=== PATIENT | female | born 1980 | race Caucasian/White ===

== ENCOUNTER 2016-10-23 15:48 | Emergency (ER) | payer SELFPAY ==
[2016-10-23 17:22] LABS: HEMOGLOBIN 13.3 gm/dl (12.3-15.3); RED BLOOD COUNT 4.94 M/UL (4.00-5.10); WHITE BLOOD COUNT 15.4 K/UL (4.5-11.0)
== END 2016-10-23 21:10 | disposition home or self-care (01) ==
LOC: ER1 15:48
PROVIDERS: Specialist/Technologist Athletic Trainer
DX: R05 Cough (principal); R09.89 Other specified symptoms and signs involving the circulatory and respiratory systems; E66.01 Morbid (severe) obesity due to excess calories; Z88.8 Allergy status to other drugs, medicaments and biological substances
CPT/HCPCS: 36415; 71010; 84702; 85025; 85379; 85610; 85730; 87081; 87880; 93005; 96360; 96361; 99283

== ENCOUNTER 2021-03-19 16:00 | Emergency (ER) | payer OTHER ==
[2021-03-19] MEDS ORDERED: CYCLOBENZAPRINE10 MG PO (18:30)
[2021-03-19] MEDS ORDERED: MOBIC15 MG PO (18:30)
== END 2021-03-19 18:56 | disposition home or self-care (01) ==
LOC: ER1 16:00
DX: S16.1XXA Strain of muscle, fascia and tendon at neck level, initial encounter (principal); S39.012A Strain of muscle, fascia and tendon of lower back, initial encounter; V43.62XA Car passenger injured in collision with other type car in traffic accident, initial encounter
CPT/HCPCS: 72125; 72131; 84703; 96372; 99284; J1885

== ENCOUNTER 2021-05-09 13:49 | Emergency (ER) | payer OTHER ==
[~2021-05-09] VITALS: Ht 162.6 cm; Wt 100.2 kg
[~2021-05-09 13:49] MED LIST: CYCLOBENZAPRINE10 MG PO; MOBIC15 MG PO
== END 2021-05-09 19:46 | disposition home or self-care (01) ==
LOC: ER1 13:49
DX: U07.1 COVID-19 (principal); Z23 Encounter for immunization; Z88.1 Allergy status to other antibiotic agents
CPT/HCPCS: 99283; M0245; U0002

== ENCOUNTER 2021-05-16 22:07 | Emergency (ER) | payer BC ==
[2021-05-17 00:21] LABS: HEMOGLOBIN 14.5 gm/dl (12.3-15.3); RED BLOOD COUNT 5.47 M/UL (4.00-5.10); WHITE BLOOD COUNT 22.3 K/UL (4.5-11.0)
[2021-05-17 00:41] LABS: BUN/CREATININE RATIO 22 (0-10)
[2021-05-17] MEDS ORDERED: VIBRAMYCIN 100100 MG PO (02:44)
== END 2021-05-17 03:00 | disposition home or self-care (01) ==
LOC: ER1 22:07
PROVIDERS: Physician Assistant
DX: J18.9 Pneumonia, unspecified organism (principal); M54.50 Low back pain, unspecified; Z86.16 Personal history of COVID-19; Z88.1 Allergy status to other antibiotic agents; Z79.899 Other long term (current) drug therapy
CPT/HCPCS: 71045; 80053; 81001; 82550; 82553; 83874; 84484; 84703; 85025; 85379; 93005; 96374; 99285; J1885

== ENCOUNTER 2021-05-22 15:13 | Emergency (ER) | payer BC, OTHER ==
[~2021-05-22 15:13] MED LIST changes: +VIBRAMYCIN 100100 MG PO
[2021-05-22 16:29] LABS: HEMOGLOBIN 14.3 gm/dl (12.3-15.3); RED BLOOD COUNT 5.48 M/UL (4.00-5.10); WHITE BLOOD COUNT 26.5 K/UL (4.5-11.0)
[2021-05-22 16:53] LABS: BUN/CREATININE RATIO 27 (0-10)
[2021-05-22] MEDS ORDERED: CEFUROXIME500 MG PO (17:56)
== END 2021-05-22 18:10 | disposition home or self-care (01) ==
LOC: ER1 15:13
PROVIDERS: Preventive Medicine Occupational Medicine
DX: U07.1 COVID-19 (principal); N39.0 Urinary tract infection, site not specified
CPT/HCPCS: 71045; 74018; 80053; 81001; 85025; 85379; 87086; 94664; 96374; 96375; 99283; J0696; J2405

== ENCOUNTER → 2021-06-17 | Outpatient (CLI) | payer OTHER ==
[~2021-06-17] MED LIST changes: +CEFUROXIME500 MG PO
== END ==
LOC: US 10:11
DX: R10.84 Generalized abdominal pain (principal); K76.0 Fatty (change of) liver, not elsewhere classified
CPT/HCPCS: 76700